=== PATIENT | female | born 2000 | race African-American/Black ===

== ENCOUNTER 2024-10-19 13:28 | Outpatient (AMB) | payer OTHER, SELFPAY ==
--- NOTE | 2024-10-19 13:35 | A.OFFVIS_ITS ---
Vital Signs 10/19/24 13:37 Height 5 ft 6 in Weight 210 lb 2 oz BMI 33.9 BP 120/72 Blood Pressure Location Lt brachial Position Sitting Intake Visit Reasons: LBP Intake Note: Patient presents for follow up LBP. states my think she has a slip disk. Standing on her feet for long periods give out and sharp pain goes down leg. Allergies vancomycin Allergy (Mild, Verified 10/19/24 13:38) Hives seafood Allergy (Unknown, Verified 10/19/24 13:38) Unknown lactose Adverse Reaction (Mild, Verified 10/19/24 13:38) Unknown naproxen Adverse Reaction (Verified 10/19/24 16:11) Gastritis HPI HPI LBP: Details: She is falling when stepping or stretching forward/bending forward. She has a sensation/discomfort in her back causing her to fall. She has bilateral radic ulopathy of both legs at the time of fall. She feels like someone hit her with a bat on her back. Twice a week since September 2024. She continues to do PT exercises for back strengthening daily. She was recently started on gabapentin 300 mg 3 times a day. She is not taking Tylenol or any NSAID. She has been experiencing urinary continence as started in the winter after viral infections induced after she coughs. She has being seen by gynecology and has been referred to urogynecology discharge and pelvic floor PT. COUNT INCLUDES [facility] Family History Mother Rheumatoid arthritis Review of Systems Const All systems reviewed & are unremarkable except as noted in HPI and below Physical Exam Vital Signs: Last Vital Signs BP 120/72 10/19/24 13:37 BMI result Body Mass Index 33.9 Const Other: General: Comfortable CVS: RRR Respiratory: clear to auscultation bilaterally. Good respiratory effort Skin: No lesions seen MSK: Tenderness to palpate lumbar spinous process and paraspinal muscles right worse than left. Good lumbar flexion. Negative straight leg raising test. Assessment & Plan Assessment & Plan (1) Low back pain: Comment: Acute on chronic worsening back pain with new onset bilateral radiculopathy when bending forward/flexing L-spine is concerning for spinal joint pathology and nerve impingement. She also has developed new stress continence ? Spinal cord pathology contributing. She had an x-ray of her L-spine in the past at the [facility], which was read as normal. She has completed physical therapy and continues to do PT exercises at home without benefit. Code(s): M54.50 - Low back pain, unspecified Category: Medical Qualifiers: Chronicity: chronic Back pain laterality: midline Sciatica presence: w ith sciatica Sciatica laterality: bilateral sciatica Qualified Code(s): M54.41 - Lumbago with sciatica, right side; M54.42 - Lumbago with sciatica, left side; G89.29 - Other chronic pain Plan: L-spine x-ray ordered Labs ordered prior to starting NSAID. After lab results are back, we will send prescription for meloxicam. If L-spine x-ray is normal, I will pursue MRI L-spine to evaluate for further pathology contributing to her symptoms Continue gabapentin 300 mg 3 times a day recently started Continue PT exercises daily Return to clinic in 1 month Orders: Orders Alanine Aminotransferase Today M54.50 - Low back pain, unspecified Complete Blood Count Auto Diff Today M54.50 - Low back pain, unspecified XR lumbar spine 2-3V Today M54.50 - Low back pain, unspecified Creatinine Today M54.50 - Low back pain, unspecified Aspartate Amino Transferase Today M54.50 - Low back pain, unspecified Coding Level of Care Code Est Pt Level 3 (84543) Complex EM visit Add On G2211 Diagnoses Chronic midline low back pain with bilateral sciatica M54.41; M54.42; G89.29 Chronicity: chronic Back pain laterality: midline Sciatica presence: with sciatica Sciatica laterality: bilateral sciatica
[2024-10-19 13:37] VITALS: BP 120/72; BMI 33.9
== END 2024-10-19 14:18 | disposition home or self-care (01) ==
PROVIDERS: PCP Internal Medicine; Visit Provider Internal Medicine Rheumatology
DX: M54.41 Lumbago with sciatica, right side (principal); M54.42 Lumbago with sciatica, left side; G89.29 Other chronic pain
CPT/HCPCS: 99213; G2211

== ENCOUNTER 2024-10-19 13:28 | Outpatient (REF) | payer OTHER, SELFPAY ==
[2024-10-19 17:36] LABS: MANUAL DIFF FLAG NO
[2024-10-19 17:42] LABS: Basophils Absolute Auto 0.1 X10*3/uL (0.0-0.2); Basophils Percent Auto 0.7 % (0-2); Eosinophils Absolute Auto 0.3 X10*3/uL (0.0-0.4); Eosinophils Percent Auto 2.2 % (0-4); Hematocrit 42.2 % (37.0-47.0); Hemoglobin 13.7 g/dl (12.0-16.0); Imm Gran Abs Auto 0.04 X10*3/uL (0.00-0.03); Imm Gran Pct Auto 0.3 % (0.0-0.4); Lymphocytes Absolute Auto 3.5 X10*3/uL (1.2-4.9); Lymphocytes Percent Auto 29.6 % (20-40); Mean Corpuscular HGB Conc 32.5 g/dl (31.0-35.0); Mean Corpuscular Hemoglobin 27.6 pg (27.0-33.0); Mean Corpuscular Volume 85.1 fL (80.0-98.0); Mean Platelet Volume 10.7 fL (9.4-12.3); Monocytes Absolute Auto 0.8 X10*3/uL (0.1-1.2); Neutrophils Absolute Auto 7.1 x10*3/uL (2.0-8.3); Neutrophils Percent Auto 60.2 % (45-73); Platelet Count 347 X10*3/uL (160-400); Red Blood Count 4.96 X10*6/uL (4.20-5.50); Red Cell Distribution Width 13.6 % (11.0-16.0); White Blood Count 11.7 X10*3/uL (4.8-10.8)
[2024-10-19 17:57] LABS: Alanine Aminotransferase 27 U/L (0-31); Aspartate Amino Transferase 20 U/L (5-31); Estimated Glomerular Filt Rate > 60
== END 2024-10-19 13:29 | disposition home or self-care (01) ==
LOC: HO.HKASLDS 13:28
PROVIDERS: PCP Internal Medicine; Visit Provider Internal Medicine Rheumatology
DX: M54.41 Lumbago with sciatica, right side (principal); G89.29 Other chronic pain
CPT/HCPCS: 36415; 82565; 84450; 84460; 85025; 99212

== ENCOUNTER 2024-12-13 13:56 | Outpatient (AMB) | payer OTHER, SELFPAY ==
--- NOTE | 2024-12-13 13:56 | MHC.OFFVIS ---
Vital Signs 12/13/24 13:58 Height 5 ft 6 in Weight 213 lb 2.992 oz BMI 34.4 BP 110/60 Blood Pressure Location Lt brachial Position Sitting Intake Visit Reasons: follow up Intake Note: Patient presents for back pain. Accompanied by: self Allergies vancomycin Allergy (Mild, Verified 12/13/24 14:00) Hives seafood Allergy (Unknown, Verified 12/13/24 14:00) Unknown lactose Adverse Reaction (Mild, Verified 12/13/24 14:00) Unknown naproxen Adverse Reaction (Verified 12/13/24 14:00) Gastritis HPI HPI follow up: Details: She has benefit on meloxicam and gabapentin 300mg TID. She recently started pelvic floor PT. She continues to do exercises learned from PT at the [facility] for lower back strengthening. She is able to bend forward without increase in pain. She has less occurrence of radicular pain in her legs. She continues to have lower back pain that is constant. [facility] Family History Mother Rheumatoid arthritis Review of Systems Const All systems reviewed & are unremarkable except as noted in HPI and below Physical Exam Vital Signs: Last Vital Signs BP 110/60 12/13/24 13:58 BMI result Body Mass Index 34.4 Const Other: General: Comfortable CVS: RRR Respiratory: clear to auscultation bilaterally. Good respiratory effort Skin: No lesions seen MSK: Tenderness to palpate lumbar spinous process and paraspinal muscles of lumbar spine. Good lumbar flexion. Negative straight leg raising test. Assessment & Plan Assessment & Plan (1) Low back pain: Comment: Chronic back pain with new onset bilateral radiculopathy when bending forward/flexing L-spine is concerning for spinal joint pathology and nerve impingement. She also has myofascial strain of lumbar paraspinal muscles contributing to her pain. She did not have L-spine x-ray done after last visit. Pain has improved with starting gabapentin and meloxicam. She does TENs unit at home and continues to do exercises learned from PT in the past. Code(s): M54.50 - Low back pain, unspecified Category: Medical Qualifiers: Chronicity: chronic Back pain laterality: midline Sciatica presence: with sciatica Sciatica laterality: bilateral sciatica Qualified Code(s): M54.41 - Lumbago with sciatica, right side; M54.42 - Lumbago with sciatica, left side; G89.29 - Other chronic pain Plan: L-spine x-ray ordered last visit. I reminded her to do x-ray to evaluate for spinal pathology contributing to her symptoms PT requisition given to patient for myofascial release. She is currently in PT for pelvic floor muscle strengthening Continue to do TENs unit at home Continues to do PT exercises for lower back strengthening at home Continue meloxicam 15 mg daily. She will call office if she needs refill. Okay to refill until follow-up. If she continues on meloxicam, I will check labs for drug monitoring on chronic NSAID at follow-up visit Continue gabapentin prescribed by another provider Orders: Orders PT Evaluation and Treatment Today G89.29 - Other chronic pain, M54.41 - Lumbago with sciatica, right side, M54.42 - Lumbago with sciatica, left side Coding Level of Care Code Est Pt Level 3 (71898) Complex EM visit Add On G2211 Diagnoses Chronic midline low back pain with bilateral sciatica M54.41; M54.42; G89.29 Chronicity: chronic Back pain laterality: midline Sciatica presence: with sciatica Sciatica laterality: bilateral sciatica
[2024-12-13 13:58] VITALS: BP 110/60; BMI 34.4
== END 2024-12-13 14:28 | disposition home or self-care (01) ==
PROVIDERS: PCP Internal Medicine; Visit Provider Internal Medicine Rheumatology
DX: M54.41 Lumbago with sciatica, right side (principal); M54.42 Lumbago with sciatica, left side; G89.29 Other chronic pain
CPT/HCPCS: 99213; G2211

== ENCOUNTER → 2024-12-13 13:56 | Outpatient (BNVA) | payer OTHER, SELFPAY | PROVIDERS: PCP Internal Medicine; Visit Provider Internal Medicine Rheumatology | DX: M54.41 Lumbago with sciatica, right side (principal); M54.42 Lumbago with sciatica, left side; G89.29 Other chronic pain | CPT/HCPCS: 99212 ==